=== PATIENT | female | born 1980 | race Caucasian/White ===

== ENCOUNTER 2021-05-31 17:03 | Emergency (ER) | payer OTHER ==
[~2021-05-31] VITALS: Ht 160 cm; Wt 63.5 kg
[2021-05-31 19:39] VITALS: BP 146/91
== END 2021-05-31 19:39 | disposition left against medical advice (07) ==
LOC: M.ERS 17:03
DX: J02.9 Acute pharyngitis, unspecified (principal); R05.9 Cough, unspecified; Z53.21 Procedure and treatment not carried out due to patient leaving prior to being seen by health care provider